=== PATIENT | female | born 1930 | race Caucasian/White ===

== ENCOUNTER 2017-01-22 10:39 | Emergency (ER) | payer MEDICARE ==
[~2017-01-22] VITALS: Ht 165.1 cm; Wt 80.0 kg
[~2017-01-22 10:39] MED LIST: AMLO10TA2 PO; ASPI-496 PO; ATEN-103 PO; ATEN50TA41 PO; ATOR20TA9 PO; DOCU-30 PO; ENAL10TA PO; HYDR25TA6 PO; LEVO500T33 PO; LISI-170 PO; METO-93 PO; NITR100C6 PO; PRED10TA PO; PRED10TA14 PO; TRAM-28 PO; WARF3TAB7 PO
[2017-01-22] MEDS ORDERED: METF100010 PO (11:54)
[2017-01-22 11:59] LABS: HEMOGLOBIN 14.6 g/dL (11.7-16.4)
[2017-01-22 12:10] LABS: ASPARTATE AMINO TRANSFERASE 21 U/L (15-37); BLOOD UREA NITROGEN 18 mg/dL (7-18)
[2017-01-22 12:21] LABS: IS PT STATUS REG ER OR PRE ER? YES
[2017-01-22 13:33] VITALS: BP 139/48
== END 2017-01-22 13:36 | disposition home or self-care (01) ==
LOC: ED 13:30
DX: M17.12 Unilateral primary osteoarthritis, left knee (principal); I10 Essential (primary) hypertension; E11.9 Type 2 diabetes mellitus without complications; E87.0 Hyperosmolality and hypernatremia; I44.0 Atrioventricular block, first degree; I48.91 Unspecified atrial fibrillation; Z90.710 Acquired absence of both cervix and uterus; Z88.0 Allergy status to penicillin; Z79.01 Long term (current) use of anticoagulants; Z95.2 Presence of prosthetic heart valve; Z91.040 Latex allergy status; Z88.6 Allergy status to analgesic agent
CPT/HCPCS: 36415; 71010; 80053; 83880; 84484; 85025; 85610; 93005

== ENCOUNTER → 2017-04-21 | Outpatient (CLI) | payer MEDICARE ==
[~2017-04-21] MED LIST changes: +METF100010 PO; +MINO100C PO; +VIT1TABL34 PO
== END | disposition home or self-care (01) ==
LOC: WOUND 12:55
PROVIDERS: ATTEND Internal Medicine
DX: E11.622 Type 2 diabetes mellitus with other skin ulcer (principal); L89.42 Pressure ulcer of contiguous site of back, buttock and hip, stage 2; I48.91 Unspecified atrial fibrillation; I10 Essential (primary) hypertension; G47.30 Sleep apnea, unspecified; M19.90 Unspecified osteoarthritis, unspecified site; Z85.828 Personal history of other malignant neoplasm of skin; Z87.891 Personal history of nicotine dependence; Z72.89 Other problems related to lifestyle
CPT/HCPCS: G0463; WOU0463

== ENCOUNTER → 2017-04-28 | Outpatient (CLI) | payer MEDICARE | END | disposition home or self-care (01) | LOC: WOUND 13:30 | PROVIDERS: ATTEND Internal Medicine | DX: E11.622 Type 2 diabetes mellitus with other skin ulcer (principal); L89.152 Pressure ulcer of sacral region, stage 2; I48.2 Chronic atrial fibrillation; I11.0 Hypertensive heart disease with heart failure; E11.42 Type 2 diabetes mellitus with diabetic polyneuropathy; M19.90 Unspecified osteoarthritis, unspecified site; Z85.828 Personal history of other malignant neoplasm of skin; Z79.01 Long term (current) use of anticoagulants; Z90.710 Acquired absence of both cervix and uterus; Z87.891 Personal history of nicotine dependence; Z72.89 Other problems related to lifestyle | CPT/HCPCS: 97597 ==

== ENCOUNTER → 2017-05-05 | Outpatient (CLI) | payer MEDICARE | END | disposition home or self-care (01) | LOC: WOUND 13:04 | PROVIDERS: ATTEND Internal Medicine | DX: E11.622 Type 2 diabetes mellitus with other skin ulcer (principal); L89.42 Pressure ulcer of contiguous site of back, buttock and hip, stage 2; I48.91 Unspecified atrial fibrillation; G47.30 Sleep apnea, unspecified; M19.90 Unspecified osteoarthritis, unspecified site; I11.0 Hypertensive heart disease with heart failure; I50.9 Heart failure, unspecified; E11.42 Type 2 diabetes mellitus with diabetic polyneuropathy; Z85.828 Personal history of other malignant neoplasm of skin; Z87.891 Personal history of nicotine dependence; Z72.89 Other problems related to lifestyle; Z90.710 Acquired absence of both cervix and uterus | CPT/HCPCS: G0463; WOU0463 ==

== ENCOUNTER → 2017-07-05 | Outpatient (CLI) | payer MEDICARE ==
[~2017-07-05] MED LIST changes: +DOCU-131 PO; -DOCU-30 PO; -LEVO500T33 PO; +LEVO500T47 PO; -TRAM-28 PO; +TRAM-47 PO
== END | disposition home or self-care (01) ==
LOC: CFH 11:59
PROVIDERS: ATTEND Internal Medicine Cardiovascular Disease
DX: Z02.9 Encounter for administrative examinations, unspecified (principal)

== ENCOUNTER 2017-07-10 09:37 | Emergency (ER) | payer MEDICARE ==
[~2017-07-10] VITALS: Ht 165.1 cm; Wt 73.0 kg
[2017-07-10] MEDS ORDERED: SODIUM CHLORIDE 0.9% 1,000 ML IV ONE (10:23)
[2017-07-10] MEDS ORDERED: MORPHINE SULFATE 4 MG/ML, 1ML IVPush PRN (10:30)
[2017-07-10] MEDS ORDERED: FAMOTIDINE 20 MG/2 ML IVP ONE (10:30)
[2017-07-10] MEDS ORDERED: ONDANSETRON 2MG/ML, 2ML IVPush ONE (10:30)
[2017-07-10] MEDS ORDERED: MAALOX/HYOSCYAMINE/LIDOCAINE 45 ML BTL PO ONE (10:30)
[2017-07-10] MEDS ORDERED: FAMOTIDINE 20 MG/2 ML ONE (10:59)
[2017-07-10] MEDS ORDERED: ONDANSETRON 2MG/ML, 2ML ONE (10:59)
[2017-07-10] MEDS ORDERED: MORPHINE SULFATE 4 MG/ML, 1ML ONE (10:59)
[2017-07-10] MEDS ORDERED: MAALOX/HYOSCYAMINE/LIDOCAINE 45 ML BTL ONE (10:59)
[2017-07-10 11:10] LABS: HEMATOCRIT 44.4 % (34.6-47.8); HEMOGLOBIN 14.3 g/dL (11.7-16.4); WHITE BLOOD COUNT 17.3 x10^3/uL (3.4-10)
[2017-07-10 11:22] LABS: BLOOD UREA NITROGEN 17 mg/dL (7-18)
[2017-07-10 11:27] LABS: ASPARTATE AMINO TRANSFERASE 17 U/L (15-37)
[2017-07-10] MEDS ORDERED: SODIUM CHLORIDE 0.9% 1,000ML IVBOLUS ONE (12:00)
[2017-07-10 13:01] VITALS: BP 165/63
[2017-07-10] MEDS ORDERED: OMNIPAQUE 350 MG/ML, 100ML BOTTLE ONE (15:55)
== END 2017-07-10 13:57 | disposition home or self-care (01) ==
LOC: ED 11:04
DX: K59.00 Constipation, unspecified (principal); D72.829 Elevated white blood cell count, unspecified; I10 Essential (primary) hypertension; E11.9 Type 2 diabetes mellitus without complications; Z90.710 Acquired absence of both cervix and uterus; Z88.0 Allergy status to penicillin; Z91.040 Latex allergy status; Z88.5 Allergy status to narcotic agent; Z87.891 Personal history of nicotine dependence
CPT/HCPCS: 36415; 74022; 74177; 80053; 81003; 83605; 83690; 84145; 85025; 85610; 87040; 93005; 96361; 96374; 96375; 99285; J2405; J7030; Q9967; S0028

== ENCOUNTER 2017-11-05 10:53 | Emergency (ER) | payer MEDICARE ==
[~2017-11-05] VITALS: Ht 165.1 cm; Wt 76.8 kg
[2017-11-05] MEDS ORDERED: SODIUM CHLORIDE FLUSH 10ML SYR IVF ONE (11:30)
[2017-11-05 11:58] LABS: BASOPHILS # (AUTO) 0.06 x10^3/uL (0-0.1); BASOPHILS % (AUTO) 1 % (0-1); EOSINOPHILS # (AUTO) 0.41 x10^3/uL (0-0.4); EOSINOPHILS % (AUTO) 4 % (1-7); LYMPHOCYTES # (AUTO) 1.95 x10^3/uL (1-3.4); LYMPHOCYTES % (AUTO) 17 % (22-44); MD NO; MEAN CORPUSCULAR HEMOGLOBIN 28.8 pg (27.0-34.8); MEAN CORPUSCULAR HGB CONC 32.7 g/dL (32.4-35.8); MEAN CORPUSCULAR VOLUME 88.2 fL (80-100); MEAN PLATELET VOLUME 9.5 fL (7.4-10.4); MONOCYTES # (AUTO) 0.72 x10^3/uL (0.2-0.8); MONOCYTES % (AUTO) 6 % (2-9); NEUTROPHILS # (AUTO) 8.61 x10^3/uL (1.8-6.8); NEUTROPHILS % (AUTO) 73 % (42-75); PLATELET COUNT 190 x10^3/uL (130-400); RED BLOOD COUNT 4.81 x10^6/uL (3.82-5.3)
[2017-11-05 12:09] LABS: ALBUMIN 3.2 g/dL (3.4-5.0); ANION GAP 5 mmol/L (5-15); CALCIUM 8.4 mg/dL (8.5-10.1); CHLORIDE 107 mmol/L (98-107)
[2017-11-05 12:15] LABS: ALANINE AMINOTRANSFERASE 22 U/L (12-78); ALKALINE PHOSPHATASE 64 U/L (45-117); BILIRUBIN,TOTAL 0.7 mg/dL (0.2-1.0); CREATININE 0.68 mg/dL (0.55-1.02); TOTAL PROTEIN 6.5 g/dL (6.4-8.2); TROPONIN I < 0.015 ng/mL (0.000-0.045)
[2017-11-05 13:21] LABS: MICROSCOPIC NOT IND
[2017-11-05 13:29] LABS: CULTURE INDICATED? NO
[2017-11-05 14:36] VITALS: BP 158/78
== END 2017-11-05 14:52 | disposition home or self-care (01) ==
LOC: ED 14:02
DX: I10 Essential (primary) hypertension (principal); R42 Dizziness and giddiness; E11.9 Type 2 diabetes mellitus without complications; I48.91 Unspecified atrial fibrillation; Z79.01 Long term (current) use of anticoagulants; Z90.49 Acquired absence of other specified parts of digestive tract
CPT/HCPCS: 36415; 71010; 80053; 81003; 84484; 85025; 93005; 99285

== ENCOUNTER 2018-09-13 10:59 | Emergency (ER) | payer MEDICARE ==
[~2018-09-13] VITALS: Ht 165.1 cm; Wt 77.5 kg
[~2018-09-13 10:59] MED LIST changes: +AMLO-264 PO; -AMLO10TA2 PO; +AMLO10TA6 PO; +CLOP75TA PO; +PANT40TA5 PO; +VIT1CAPS11 PO; +WARF3TAB52 PO; -WARF3TAB7 PO
[2018-09-13 11:39] LABS: CULTURE INDICATED? YES; MICROSCOPIC INDICATED
[2018-09-13 12:06] LABS: BASOPHILS # (AUTO) 0.08 x10^3/uL (0-0.1); BASOPHILS % (AUTO) 1 % (0-1); EOSINOPHILS % (AUTO) 7 % (1-7); LYMPHOCYTES # (AUTO) 2.14 x10^3/uL (1-3.4); LYMPHOCYTES % (AUTO) 15 % (22-44); MD NO; MEAN CORPUSCULAR HEMOGLOBIN 28.5 pg (27.0-34.8); MEAN CORPUSCULAR HGB CONC 32.2 g/dL (32.4-35.8); MEAN CORPUSCULAR VOLUME 88.5 fL (80-100); MEAN PLATELET VOLUME 8.3 fL (7.4-10.4); MONOCYTES # (AUTO) 0.94 x10^3/uL (0.2-0.8); MONOCYTES % (AUTO) 7 % (2-9); NEUTROPHILS # (AUTO) 9.69 x10^3/uL (1.8-6.8); NEUTROPHILS % (AUTO) 70 % (42-75); PLATELET COUNT 214 x10^3/uL (130-400); RED BLOOD COUNT 4.51 x10^6/uL (3.82-5.3); RED CELL DISTRIBUTION WIDTH 14.5 % (9.6-15.2)
[2018-09-13 12:15] LABS: ALBUMIN 3.2 g/dL (3.4-5.0); ANION GAP 8 mmol/L (5-15); CALCIUM 8.3 mg/dL (8.5-10.1); CHLORIDE 109 mmol/L (98-107); CREATININE 0.72 mg/dL (0.55-1.02)
[2018-09-13 12:36] VITALS: BP 139/61
[2018-09-13] MEDS ORDERED: CEFTRIAXONE 1,000 MG ONE (13:13)
[2018-09-13] MEDS ORDERED: LIDOCAINE-MPF 1%, 2ML ONE (13:13)
[2018-09-13] MEDS ORDERED: CEFTRIAXONE 1,000 MG IM ONE (13:30)
== END 2018-09-13 13:39 | disposition home or self-care (01) ==
LOC: ED 11:38
DX: N30.00 Acute cystitis without hematuria (principal); I48.91 Unspecified atrial fibrillation; I10 Essential (primary) hypertension; E11.42 Type 2 diabetes mellitus with diabetic polyneuropathy
CPT/HCPCS: 36415; 80048; 81001; 82040; 85025; 87077; 87086; 87186; 96372; 99284; J0696

== ENCOUNTER 2019-03-09 10:59 | Inpatient (IN) | payer MEDICARE ==
[~2019-03-09] VITALS: Ht 165.1 cm; Wt 75.2 kg
[~2019-03-09 10:59] MED LIST changes: -AMLO10TA6 PO; +AMLO10TA8 PO; +ATOR20TA37 PO; -ATOR20TA9 PO
--- NOTE | 2019-03-09 11:39 | NUR ---
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
--- NOTE | 2019-03-09 11:53 | NUR ---
DR MUNGUIA AT BEDSIDE TO EVAL PT
--- NOTE | 2019-03-09 11:57 | NUR ---
CONTACT WITH PT, 88 YR OLD FEMALE HERE WITH C/O "MY BP HAS BEEN RUNNING KATLYN HIGH. YESTERDAY THE HIGH ONE WAS 202 AND I HAD SLIGHT CP AND STOMACH PAINS, MY DAUGHTER THOUGHT I SHOULD GET IT CHECKED OUT. EVERY MORNING WHEN I WAKE UP I HAVE PAIN IN MY STOMACH" PT CURRENTLY DENIES CP/STOMACH PAINS.
[2019-03-09 12:15] LABS: BASOPHILS # (AUTO) 0.04 x10^3/uL (0-0.1); BASOPHILS % (AUTO) 0 % (0-1); EOSINOPHILS # (AUTO) 0.44 x10^3/uL (0-0.4); EOSINOPHILS % (AUTO) 4 % (1-7); LYMPHOCYTES # (AUTO) 2.12 x10^3/uL (1-3.4); LYMPHOCYTES % (AUTO) 17 % (22-44); MD NO; MEAN CORPUSCULAR HGB CONC 32.5 g/dL (32.4-35.8); MEAN CORPUSCULAR VOLUME 86.2 fL (80-100); MEAN PLATELET VOLUME 8.6 fL (7.4-10.4); MONOCYTES # (AUTO) 0.97 x10^3/uL (0.2-0.8); MONOCYTES % (AUTO) 8 % (2-9); NEUTROPHILS # (AUTO) 8.87 x10^3/uL (1.8-6.8); NEUTROPHILS % (AUTO) 71 % (42-75); PLATELET COUNT 223 x10^3/uL (130-400); RED BLOOD COUNT 4.93 x10^6/uL (3.82-5.3); RED CELL DISTRIBUTION WIDTH 15.6 % (9.6-15.2)
[2019-03-09] MEDS ORDERED: AMLO-150 PO (12:25)
[2019-03-09] MEDS ORDERED: CLOB15CR19 TP (12:25)
[2019-03-09] MEDS ORDERED: FLUT15.88 INH (12:25)
[2019-03-09] MEDS ORDERED: VIT1CAPS11 PO (12:25)
[2019-03-09] MEDS ORDERED: HYDR25TA11 PO (12:25)
[2019-03-09] MEDS ORDERED: FURO-93 PO (12:25)
[2019-03-09] MEDS ORDERED: MINO100C PO (12:25)
[2019-03-09 12:26] LABS: INTERNATIONAL NORMALIZED RATIO 1.02 (0.93-1.1); PROTHROMBIN TIME 10.7 Seconds (9.6-11.5)
[2019-03-09 12:29] LABS: ALBUMIN 3.4 g/dL (3.4-5.0); ANION GAP 7 mmol/L (5-15); CALCIUM 8.3 mg/dL (8.5-10.1); CHLORIDE 110 mmol/L (98-107); CREATININE 0.71 mg/dL (0.55-1.02)
[2019-03-09 12:34] LABS: ALANINE AMINOTRANSFERASE 21 U/L (12-78); ALKALINE PHOSPHATASE 83 U/L (45-117); BILIRUBIN,TOTAL 0.6 mg/dL (0.2-1.0); TOTAL PROTEIN 6.9 g/dL (6.4-8.2); TROPONIN I < 0.015 ng/mL (0.000-0.045)
[2019-03-09 13:18] LABS: MICROSCOPIC AUTO
[2019-03-09 13:33] LABS: CULTURE INDICATED? NO
--- NOTE | 2019-03-09 14:51 | NUR ---
REPORT CALLED TO BALJIT VALENTIN, POC DISCUSSED.
[2019-03-09 15:31] VITALS: BP 178/81
[2019-03-09] MEDS ORDERED: DEXTROSE 50%, 50ML SYRINGE IVPush PRN (16:30)
[2019-03-09] MEDS: INSULIN LISPRO 100 UNITS/ML, PEN SQ-INSULIN SCH ×2 (16:30→21:00)
[2019-03-09] MEDS ORDERED: hydrALAzine 20 MG/ML, 1ML IVPush PRN (16:30)
[2019-03-09] MEDS ORDERED: ACETAMINOPHEN 325 MG TABLET PO PRN (16:30)
[2019-03-09] MEDS ORDERED: DOCUSATE 100 MG CAPSULE PO PRN (16:30)
[2019-03-09] MEDS ORDERED: POTASSIUM CHLORIDE 40 MEQ in SODIUM CHLORIDE 0.9% 500 ML IV ONE (16:30)
[2019-03-09] MEDS ORDERED: LABETALOL 5MG/ML, 20ML IVPush PRN (16:30)
[2019-03-09] MEDS ORDERED: FUROSEMIDE 20 MG TABLET PO PRN (16:30)
[2019-03-09] MEDS ORDERED: GLUCAGON 1 MG IM PRN (16:30)
[2019-03-09] MEDS ORDERED: BISACODYL 10 MG SUPP PR PRN (16:30)
[2019-03-09] MEDS ORDERED: DEXTROSE 4 GM TAB.CHEW PO PRN (16:30)
[2019-03-09] MEDS ORDERED: POLYETHYLENE GLYCOL 17 GM PACKET PO PRN (16:30)
[2019-03-09] MEDS: HEPARIN 5,000 UNITS/ML, 1ML SQ SCH (17:09)
[2019-03-09 17:27] LABS: FREE T4 (FREE THYROXINE) 1.01 ng/dL (0.76-1.46); TROPONIN I < 0.015 ng/mL (0.000-0.045)
[2019-03-09 17:46] LABS: HEMOGLOBIN A1C 5.9 % (4.2-6.3)
[2019-03-09 18:43] VITALS: BP 150/62
[2019-03-09] MEDS: FLUTICASONE NASAL SPRAY 16GM NAS SCH (21:00)
[2019-03-09] MEDS: AMLODIPINE 5 MG TABLET PO SCH (21:21)
[2019-03-09] MEDS: ATORVASTATIN 20 MG TABLET PO SCH (21:21)
[2019-03-09] MEDS: METOPROLOL SUCCINATE 50 MG TAB.ER.24H PO SCH (21:21)
[2019-03-09] MEDS: SODIUM CHLORIDE FLUSH 10ML SYR IVF SCH (21:22)
[2019-03-09 22:31] LABS: TROPONIN I < 0.015 ng/mL (0.000-0.045)
[2019-03-10] MEDS: HEPARIN 5,000 UNITS/ML, 1ML SQ SCH ×3 (01:07→16:17)
[2019-03-10 01:21] VITALS: BP 176/75
[2019-03-10] MEDS ORDERED: DIPHENHYDRAMINE 50 MG/ML, 1ML ONE (02:50)
[2019-03-10 03:00] VITALS: BP 150/89
[2019-03-10] MEDS ORDERED: DIPHENHYDRAMINE 50 MG/ML, 1ML IVPush ONE (03:00)
[2019-03-10 04:59] LABS: BASOPHILS # (AUTO) 0.04 x10^3/uL (0-0.1); BASOPHILS % (AUTO) 0 % (0-1); EOSINOPHILS # (AUTO) 0.46 x10^3/uL (0-0.4); EOSINOPHILS % (AUTO) 4 % (1-7); LYMPHOCYTES # (AUTO) 2.39 x10^3/uL (1-3.4); LYMPHOCYTES % (AUTO) 21 % (22-44); MD NO; MEAN CORPUSCULAR HGB CONC 32.5 g/dL (32.4-35.8); MEAN CORPUSCULAR VOLUME 86.2 fL (80-100); MEAN PLATELET VOLUME 8.9 fL (7.4-10.4); MONOCYTES # (AUTO) 0.81 x10^3/uL (0.2-0.8); MONOCYTES % (AUTO) 7 % (2-9); NEUTROPHILS # (AUTO) 7.59 x10^3/uL (1.8-6.8); NEUTROPHILS % (AUTO) 67 % (42-75); PLATELET COUNT 182 x10^3/uL (130-400); RED BLOOD COUNT 4.59 x10^6/uL (3.82-5.3); RED CELL DISTRIBUTION WIDTH 15.5 % (9.6-15.2)
[2019-03-10 05:14] LABS: ALANINE AMINOTRANSFERASE 19 U/L (12-78); ANION GAP 7 mmol/L (5-15); CALCIUM 8.6 mg/dL (8.5-10.1); CHLORIDE 113 mmol/L (98-107); CREATININE 0.65 mg/dL (0.55-1.02)
[2019-03-10 05:20] LABS: ALKALINE PHOSPHATASE 70 U/L (45-117); BILIRUBIN,TOTAL 0.6 mg/dL (0.2-1.0); CHOL/HDL RATIO 2.2; CHOLESTEROL, TOTAL 109 mg/dL (140-239); HDL CHOL % 45 % (28-40); HDL CHOLESTEROL (DIRECT) 49 mg/dL (40-60); LDL CHOLESTEROL,CALCULATED 37 mg/dL (54-169); LDL/HDL RATIO 0.8 (0.5-3.0); TOTAL PROTEIN 6.1 g/dL (6.4-8.2); TRIGLYCERIDES 117 mg/dL (50-200); VLDL CHOLESTEROL 23 mg/dL (0-25)
[2019-03-10] MEDS ORDERED: POTASSIUM CHLORIDE 20 MEQ TAB.ER.PRT PO ONE (06:30)
[2019-03-10] MEDS ORDERED: MAGNESIUM SULFATE PMX 4GM/100M 100 ML IVPB ONE (06:30)
[2019-03-10 07:14] VITALS: BP 153/74
[2019-03-10] MEDS: INSULIN LISPRO 100 UNITS/ML, PEN SQ-INSULIN SCH ×4 (08:07→21:00)
[2019-03-10] MEDS: AMLODIPINE 5 MG TABLET PO SCH (08:29)
[2019-03-10] MEDS: SODIUM CHLORIDE FLUSH 10ML SYR IVF SCH ×2 (08:30→21:30)
[2019-03-10] MEDS: LISINOPRIL 20 MG TABLET PO SCH (08:30)
[2019-03-10] MEDS: ASPIRIN 81 MG TABLET EC PO SCH (08:30)
[2019-03-10] MEDS: CLOPIDOGREL 75 MG TABLET PO SCH (08:31)
[2019-03-10] MEDS: PANTOPROZOLE 40MG TABLET PO SCH (08:31)
[2019-03-10] MEDS: FLUTICASONE NASAL SPRAY 16GM NAS SCH (09:00)
[2019-03-10] MEDS ORDERED: FUROSEMIDE 20 MG TABLET PO SCH (09:00)
[2019-03-10 12:17] VITALS: BP 125/70
--- NOTE | 2019-03-10 14:14 | NUR ---
MORTGAGE SERVICING SPECIALIST RECOMMENDATIONS: -Chopped diet with NTL -Upright at 90 degrees -No straws -Float medications Addendum: 03/10/19 at [address] Amended: Links added.
[2019-03-10] MEDS ORDERED: FUROSEMIDE 20 MG/2 ML IV SCH (14:30)
[2019-03-10 20:37] VITALS: BP 120/71
[2019-03-10] MEDS ORDERED: AMLODIPINE 5 MG TABLET PO SCH (21:00)
[2019-03-10] MEDS: ATORVASTATIN 20 MG TABLET PO SCH (21:31)
[2019-03-10] MEDS: METOPROLOL SUCCINATE 50 MG TAB.ER.24H PO SCH (21:31)
[2019-03-11 00:51] VITALS: BP 110/68
[2019-03-11] MEDS: HEPARIN 5,000 UNITS/ML, 1ML SQ SCH ×3 (03:05→20:13)
[2019-03-11 05:16] LABS: CHLORIDE 108 mmol/L (98-107)
[2019-03-11 05:31] LABS: ALBUMIN 3.3 g/dL (3.4-5.0); ANION GAP 10 mmol/L (5-15); CALCIUM 8.9 mg/dL (8.5-10.1); CREATININE 1.01 mg/dL (0.55-1.02)
[2019-03-11] MEDS: INSULIN LISPRO 100 UNITS/ML, PEN SQ-INSULIN SCH ×4 (07:00→20:14)
[2019-03-11 07:25] VITALS: BP 109/68
[2019-03-11] MEDS: CLOPIDOGREL 75 MG TABLET PO SCH (07:29)
[2019-03-11] MEDS: LISINOPRIL 20 MG TABLET PO SCH ×2 (07:29→07:52)
[2019-03-11] MEDS: SODIUM CHLORIDE FLUSH 10ML SYR IVF SCH ×2 (07:30→20:17)
[2019-03-11] MEDS: PANTOPROZOLE 40MG TABLET PO SCH (07:30)
[2019-03-11] MEDS: FUROSEMIDE 20 MG TABLET PO SCH (07:30)
[2019-03-11] MEDS: ASPIRIN 81 MG TABLET EC PO SCH (07:30)
[2019-03-11 07:40] VITALS: BP 102/61
[2019-03-11] MEDS: FLUTICASONE NASAL SPRAY 16GM NAS SCH ×2 (07:45→07:51)
[2019-03-11 12:30] VITALS: BP 114/66
[2019-03-11 17:52] LABS: MICROSCOPIC NOT IND
[2019-03-11 17:56] LABS: CULTURE INDICATED? NO
[2019-03-11] MEDS: METOPROLOL SUCCINATE 50 MG TAB.ER.24H PO SCH (20:14)
[2019-03-11] MEDS: ATORVASTATIN 20 MG TABLET PO SCH (20:14)
[2019-03-11 20:18] VITALS: BP 135/62
[2019-03-12] MEDS: HEPARIN 5,000 UNITS/ML, 1ML SQ SCH ×2 (04:57→11:09)
[2019-03-12 05:01] VITALS: BP 112/65
[2019-03-12 05:13] LABS: BASOPHILS # (AUTO) 0.05 x10^3/uL (0-0.1); BASOPHILS % (AUTO) 0 % (0-1); EOSINOPHILS # (AUTO) 0.74 x10^3/uL (0-0.4); EOSINOPHILS % (AUTO) 7 % (1-7); LYMPHOCYTES # (AUTO) 2.67 x10^3/uL (1-3.4); LYMPHOCYTES % (AUTO) 26 % (22-44); MD NO; MEAN CORPUSCULAR HEMOGLOBIN 28.5 pg (27.0-34.8); MEAN CORPUSCULAR HGB CONC 32.7 g/dL (32.4-35.8); MEAN CORPUSCULAR VOLUME 87.2 fL (80-100); MEAN PLATELET VOLUME 8.9 fL (7.4-10.4); MONOCYTES # (AUTO) 0.96 x10^3/uL (0.2-0.8); MONOCYTES % (AUTO) 9 % (2-9); NEUTROPHILS # (AUTO) 6.03 x10^3/uL (1.8-6.8); NEUTROPHILS % (AUTO) 58 % (42-75); PLATELET COUNT 200 x10^3/uL (130-400); RED BLOOD COUNT 4.38 x10^6/uL (3.82-5.3); RED CELL DISTRIBUTION WIDTH 15.7 % (9.6-15.2)
[2019-03-12 05:14] LABS: ALBUMIN 3.1 g/dL (3.4-5.0); ANION GAP 6 mmol/L (5-15); CALCIUM 8.3 mg/dL (8.5-10.1); CHLORIDE 110 mmol/L (98-107)
[2019-03-12 05:15] LABS: CREATININE 0.97 mg/dL (0.55-1.02)
[2019-03-12] MEDS: INSULIN LISPRO 100 UNITS/ML, PEN SQ-INSULIN SCH ×2 (07:39→11:16)
[2019-03-12 07:46] VITALS: BP 109/67
[2019-03-12] MEDS ORDERED: LISI-170 PO (08:58)
[2019-03-12] MEDS ORDERED: FURO20TA3 PO (08:58)
[2019-03-12] MEDS: FLUTICASONE NASAL SPRAY 16GM NAS SCH (09:10)
[2019-03-12] MEDS: PANTOPROZOLE 40MG TABLET PO SCH (09:11)
[2019-03-12] MEDS: CLOPIDOGREL 75 MG TABLET PO SCH (09:11)
[2019-03-12] MEDS: ASPIRIN 81 MG TABLET EC PO SCH (09:11)
[2019-03-12] MEDS: LISINOPRIL 20 MG TABLET PO SCH (09:11)
[2019-03-12] MEDS: FUROSEMIDE 20 MG TABLET PO SCH (09:11)
[2019-03-12] MEDS: SODIUM CHLORIDE FLUSH 10ML SYR IVF SCH (09:12)
[2019-03-12 12:54] VITALS: BP 125/66
== END 2019-03-12 13:10 | disposition home or self-care (01) | DRG 291 ==
LOC: ED 13:12 → EDIP 14:15 → 5SO 15:04
PROVIDERS: ADMIT Internal Medicine; ATTEND Internal Medicine
PROC: 0T9B70Z Drainage of Bladder with Drainage Device, Via Natural or Artificial Opening (ICD-10-PCS; principal; 2019-03-09)
DX: I11.0 Hypertensive heart disease with heart failure (principal); E43 Unspecified severe protein-calorie malnutrition; I25.10 Atherosclerotic heart disease of native coronary artery without angina pectoris; I50.33 Acute on chronic diastolic (congestive) heart failure; I10 Essential (primary) hypertension; E11.9 Type 2 diabetes mellitus without complications; E83.42 Hypomagnesemia; E87.6 Hypokalemia; G20 Parkinson's disease; G47.33 Obstructive sleep apnea (adult) (pediatric); G89.29 Other chronic pain; I35.0 Nonrheumatic aortic (valve) stenosis; K59.00 Constipation, unspecified; I48.91 Unspecified atrial fibrillation; K57.30 Diverticulosis of large intestine without perforation or abscess without bleeding; D72.829 Elevated white blood cell count, unspecified; G62.9 Polyneuropathy, unspecified; M19.90 Unspecified osteoarthritis, unspecified site; R13.10 Dysphagia, unspecified; R31.9 Hematuria, unspecified; Z79.899 Other long term (current) drug therapy; Z86.73 Personal history of transient ischemic attack (TIA), and cerebral infarction without residual deficits; Z87.891 Personal history of nicotine dependence; Z90.49 Acquired absence of other specified parts of digestive tract; Z90.710 Acquired absence of both cervix and uterus; Z95.2 Presence of prosthetic heart valve; Z88.0 Allergy status to penicillin; Z79.82 Long term (current) use of aspirin; Z98.49 Cataract extraction status, unspecified eye
CPT/HCPCS: 36415; 70450; 71045; 74176; 80048; 80053; 80061; 81001; 81003; 82040; 82962; 83036; 83690; 83735; 83880; 84439; 84443; 84484; 85025; 85610; 85730; 87040; 93005; 93306; 99285; G0378; J1644; J3480; J0360; J1200; J1940; J3475; J7040; Q0177